=== PATIENT | female | born 1990 | race Two or more races ===

== ENCOUNTER → 2017-05-14 | Outpatient (CLI) | payer OTHER ==
--- NOTE | 2017-05-14 12:49 | XR ---
EXAMINATION TYPE: XR wrist complete RT DATE OF EXAM: 05/14/2017 CLINICAL HISTORY: Right wrist pain following repeated lifting. TECHNIQUE: Frontal, lateral and oblique images of the right wrist are obtained. COMPARISON: None FINDINGS: There is no acute fracture/dislocation evident in the right wrist. The joint spaces in th e right wrist appear within normal limits. The overlying soft tissue appears unremarkable. IMPRESSION: There is no acute fracture or dislocation in the right wrist.
== END | disposition home or self-care (01) ==
LOC: RADXRMAIN 12:27
PROVIDERS: ATTEND Emergency Medicine
DX: M25.531 Pain in right wrist (principal)

== ENCOUNTER 2017-07-25 23:58 | Emergency (ER) | payer OTHER ==
[2017-07-26 00:04] VITALS: TEMP 97.4
--- NOTE | 2017-07-26 00:30 | ED ---
General Adult HPI - General Chief complaint: Extremity Injury, Lower Stated complaint: rt ankle injury Time Seen by Provider: 07/26/17 00:11 Source: patient, RN notes reviewed Mode of arrival: wheelchair Limitations: no limitations - History of Present Illness Initial comments: Patient is a 26-year-old female presenting to the emergency room today with a chief complaint of injury to the right ankle that occurred approximately 3 hours ago. She states she stepped wrong twisted the right ankle. States since that time septic with them with ambulation. Experiencing pain to the medial aspect. Denies any other concerns or symptoms. Patient denies any recent fever , chills, shortness of breath, chest pain, back pain, abdominal pain, nausea or vomiting, numbness or tingling, headaches or visual changes, or any other complaints. - Related Data Previous Rx's Medication Instructions Recorded Acetaminophen-Codeine 300-30mg 2 each PO Q4HR PRN #30 tab 11/16/13 [Tylenol w/codeine #3] Ibuprofen [Motrin] 600 mg PO Q6HR PRN #30 tab 11/16/13 Ibuprofen [Motrin] 600 mg PO Q6HR PRN #40 day 07/26/17 Allergies Allergy/AdvReac Type Severity Reaction Status Date / Time No Known Allergies Allergy Verified 07/26/17 00:04 Review of Systems ROS Statement: Those systems with pertinent positive or pertinent negative responses have been documented in the HPI. ROS Other: All systems not noted in ROS Statement are negative. Past Medical History Past Medical History: No Reported History Additional Past Medical History / Comment(s): Obstetric history: Her first was elective . This is her second . She's had care with me since 16 weeks gestation. EDC 11/04/13 by a 17 week ultrasound. Her type is O+, antibodies negative, rubella immune, RPR nonreactive, HIV nonreactive, hepatitis B negative. Normal 1 hour glucose tolerance test. History of Any Multi-Drug Resistant Organisms: None Reported Past Surgical History: Section, Orthopedic Surgery, Tonsillectomy Additional Past Surgical History / Comment(s): Knee surgery Past Anesthesia/Blood Transfusion Reactions: No Reported Reaction Past Psychological History: No Psychological Hx Reported Smoking Status: Current some day smoker Past Alcohol Use History: Occasional Past Drug Use History: None Reported General Exam - General Exam Comments Initial Comments: General: The patient is awake and alert, in no distress, and does not appear acutely ill. Neck: The neck is supple, there is no tenderness or JVD. Cardiovascular: There is a regular rate and rhythm. No murmur, rub or gallop is appreciated. Respiratory: Lungs are clear to auscultation, respirations are non-labored, breath sounds are equal. No wheezes, stridor, rales, or rhonchi. Musculoskeletal: Normal appearance of the right ankle no obvious deformity. Sensations are intact with pulses 2+. Mildly tender over the medial aspect of the right ankle. Mild tenderness to distal midshaft tibia. No tenderness over the fibular head. No tenderness over the lateral malleolus. Mildly tender posterior to lateral malleolus. No tenderness to the right foot. Neurological: A&O x 3. CN II-XII intact, There are no obvious motor or sensory deficits. Coordination appears grossly intact. Speech is normal. Skin: Skin is warm and dry and no rashes or lesions are noted. Psychiatric: Normal mood and affect. Limitations: no limitations Course Vital Signs 07/26/17 07/26/17 00:01 01:04 Temperature 97.4 F L Pulse Rate 81 78 Respiratory 18 15 Rate Blood Pressure 125/81 134/86 O2 Sat by Pulse 99 100 Oximetry Medical Decision Making - Medical Decision Making X-rays reviewed negative for any acute abnormality. Results were discussed with patient. Patient difficulty ambulating has been placed in a posterior short leg OCL splint. Neurovascular rechecked and intact. Patient states she has crutches at home but will be given a prescription just in case. Advised ice elevate and follow-up with orthopedic doctor. Disposition Clinical Impression: Ankle injury Disposition: HOME SELF-CARE Condition: Good Instructions: Ankle Sprain (ED) Additional Instructions: Please use medication as discussed. Please follow-up with family doctor in the next 2 days of symptoms have not improved. Please return to emergency room if the symptoms increase or worsen or for any other concerns. Prescriptions: Ibuprofen [Motrin] 600 mg PO Q6HR PRN #40 day PRN Reason: Pain Referrals: Mj Contreras MD [Primary Care Provider] - 1-2 days Time of Disposition: 02:04
[2017-07-26 01:15] VITALS: BP 134/86; PULSE 78; RESP 15
--- NOTE | 2017-07-26 01:26 | XR ---
EXAMINATION TYPE: XR ankle complete RT DATE OF EXAM: 07/26/2017 COMPARISON: NONE HISTORY: Leg pain ankle pain TECHNIQUE: 3 views FINDINGS: Ankle mortise is anatomic. I see no fracture nor dislocation. Joint spaces are normal. IMPRESSION: Negative right ankle exam.
--- NOTE | 2017-07-26 01:27 | XR ---
EXAMINATION TYPE: XR tibia fibula RT DATE OF EXAM: 07/26/2017 COMPARISON: NONE HISTORY: Ankle pain TECHNIQUE: 2 views FINDINGS: I see no fracture nor dislocation. Tibia and fibula appear intact. Knee joint and ankle rivera nt appear intact. IMPRESSION: Negative right tibia and fibula exam.
== END 2017-07-26 02:23 | disposition home or self-care (01) ==
LOC: EC 23:58
DX: S99.911A Unspecified injury of right ankle, initial encounter (principal); F17.200 Nicotine dependence, unspecified, uncomplicated; X50.1XXA Overexertion from prolonged static or awkward postures, initial encounter; Y92.89 Other specified places as the place of occurrence of the external cause
CPT/HCPCS: 29515; 99283

== ENCOUNTER 2018-09-18 06:45 | Inpatient (IN) | payer BC, OTHER ==
[2018-09-18] MEDS: LACTATED RINGERS 1,000 ML IV SCH ×3 (13:27→21:42)
[2018-09-18] MEDS ORDERED: CARBOPROST TROMETHAMINE 250 MCG/ML 1 ML AMP IM PRN (13:28)
[2018-09-18] MEDS ORDERED: METHYLERGONOVINE 0.2 MG/ML 1 ML AMP IM PRN (13:28)
[2018-09-18] MEDS ORDERED: OXYTOCIN 30 UNITS/500 ML NS 30 UNIT in SALINE 1 500ML.BAG IV SCH (13:28)
[2018-09-18] MEDS ORDERED: TERBUTALINE 1 MG/ML VIAL SQ PRN (13:28)
[2018-09-18] MEDS ORDERED: OXYTOCIN 10 UNIT/ML 1 ML VIAL IM PRN (13:28)
[2018-09-18] MEDS ORDERED: LIDOCAINE 0.5% (PF) 5 MG/ML (50 ML SDV) SQ PRN (13:28)
[2018-09-18] MEDS ORDERED: AMPICILLIN 2,000 MG in SODIUM CHLORIDE 0.9% 100 ML IVPB STA (13:29)
[2018-09-18 13:47] LABS: Basophils % (A) 0 %; Eosinophils # (A) 0.1 k/uL (0-0.7); Eosinophils % (A) 1 %; HCT 33.3 % (34.0-46.0); HGB 11.2 gm/dL (11.4-16.0); Lymphocytes # (A) 1.5 k/uL (1.0-4.8); Lymphocytes % (A) 15 %; MCH 32.2 pg (25.0-35.0); MCHC 33.6 g/dL (31.0-37.0); Mean Platelet Volume 9.4; Monocytes # (A) 0.5 k/uL (0-1.0); Monocytes % (A) 5 %; Neutrophils # (A) 7.7 k/uL (1.3-7.7); Neutrophils % (A) 77 %; Platelet Count 183 k/uL (150-450); RBC 3.47 m/uL (3.80-5.40); RDW 14.8 % (11.5-15.5)
[2018-09-18 14:18] VITALS: BMI 40.4
[2018-09-18] MEDS ORDERED: BUTORPHANOL 1 MG/ML 1 ML VIAL IV PRN (15:30)
[2018-09-18] MEDS ORDERED: ROPIVACAINE 5MG/ML 20ML VIAL ONE (16:29)
[2018-09-18] MEDS ORDERED: fentaNYL (PF) 50 MCG/ML 5 ML AMP ONE (16:29)
[2018-09-18] MEDS ORDERED: SODIUM CHLORIDE 0.9% 100 ML BAG ONE (16:29)
[2018-09-18] MEDS: AMPICILLIN 1,000 MG in SODIUM CHLORIDE 0.9% 50 ML IVPB SCH ×2 (18:04→21:45)
[2018-09-18] MEDS ORDERED: CHLOROPROCAINE 3% 30 MG/ML 20 ML VIAL ONE (21:59)
[2018-09-18] MEDS ORDERED: OXYTOCIN 10 UNIT/ML 1 ML VIAL ONE (21:59)
[2018-09-18] MEDS ORDERED: PHENYLEPHRINE-0.9% NACL SYG 1 MG/10 ML SYRINGE ONE (21:59)
[2018-09-18] MEDS ORDERED: CITRIC ACID-SODIUM CITRATE 15 ML CUP PO ONE (22:00)
--- NOTE | 2018-09-18 23:14 | P.OP ---
Date of Procedure: 09/18/18 Preoperative Diagnosis: 1. at 39 weeks 6 days 2. previous 3. category 3 tracing Postoperative Diagnosis: 1. at 39 weeks 6 days 2. previous 3. category 3 tracing 4. clinical abruption of placenta Procedure(s) Performed: Repeat low transverse Anesthesia: epidural Surgeon: Zully Gomez Spanish Professor #1: Taylor Farr Estimated Blood Loss (ml): 800 IV fluids (ml): 1,000 Urine output (ml): 100 Pathology: other (Placenta) Condition: stable Disposition: floor Indications for Procedure: 28-year-[facility] labor around 1 PM. Her cervix was 2 cm dilated, 80% effaced, and -3 station. She was uncomfortable with contractions and ingrid every 2-4 minutes. heart tones 130s with moderate variability and reactive, category 1 tracing. Pitocin augmentation was started and amniotomy performed at 1330, clear fluid noted. She progressed throughout the day when she was uncomfortable at 4 cm she did get an epidural. Her cervix was completely dilated just after 2130. She began pushing started to have some decelerations after contraction to the 80s with slow return to baseline. This is a category 2 tracing turned into category 3 tracing. Considering the baby was still at 0 station and quite remote from delivery, section was called and informed consent was obtained. Operative Findings: Viable female, Apgars 4, 8, 9. Weight 6 lbs. 7 oz. Normal ovaries and fallopian tubes, the placenta had a clot behind it. Description of Procedure: Patient was taken to the operating room where spinal anesthesia was found be adequate. She was prepped and draped in normal sterile fashion in dorsal supine position with a leftward tilt. Pfannenstiel skin incision was made the scalpel and carried through to the underlying layer of fascia with the scalpel. Fascia was incised in midline and carried bilaterally with the Lazo scissors. The superior aspect of the fascial incision was grasped with Charles clamps elevated and the underlying rectus muscles dissected off with the Lazo's. Attention was then turned to inferior aspect of same incision which in a similar fashion was grasped tented up and the underlying rectus muscles dissected off with the Lazo's. The rectus muscles were the midline and the peritoneum was identified tented up and entered sharply with the scalpel. The incision was extended superiorly and inferiorly with good visualization of the bladder. The bladder blade was inserted and the vesicouterine peritoneum was incised the Metzenbaums then carried bilaterally and bladder flap created digitally. A low transverse incision was then made on the uterus with the scalpel. This was carried bilaterally and digital manner. Infant's head delivered atraumatically, nose and mouth bulb suctioned, cord clamped and cut, infant handed off to waiting nurses. Apgars 9,10, weight 6 lbs. 7 oz. Placenta delivered manually, intact with three-vessel cord, of note a clot followed the placenta. The uterus was cleared of all clots and debris. The uterine incision was seen to have some extensions down the front and the right corner. The uterine incision was closed with 0 Vicryl in a running locked fashion. Second layer of the same sutures used in imbricating fashion to obtain excellent hemostasis. The fascia was billy pproximated using 0 Vicryl in a running fashion. The subcutaneous tissues closed with 3-0 Vicryl running fashion. The skin was closed renuka. Patient tolerated the procedure well, sponge and instrument counts were correct times 2 and she was taken to the recovery room in stable condition.
[2018-09-18] MEDS ORDERED: LANOLIN CREAM 5 GM TUBE TOPICAL PRN (23:15)
[2018-09-18] MEDS ORDERED: diphenhydrAMINE 50 MG CAP PO PRN (23:15)
[2018-09-18] MEDS ORDERED: diphenhydrAMINE 25 MG CAP PO PRN (23:15)
[2018-09-18] MEDS ORDERED: NALOXONE 0.4 MG/ML 1 ML VIAL IV PRN (23:15)
[2018-09-18] MEDS ORDERED: ONDANSETRON 4 MG/2 ML VIAL IVP PRN (23:15)
[2018-09-18] MEDS ORDERED: METOCLOPRAMIDE 5 MG/ML 2 ML VIAL IVP PRN (23:15)
[2018-09-18] MEDS ORDERED: ACETAMINOPHEN TAB 325 MG TAB PO PRN (23:15)
[2018-09-18] MEDS ORDERED: SIMETHICONE 80 MG CHEWABLE PO PRN (23:15)
[2018-09-18] MEDS ORDERED: diphenhydrAMINE 50 MG/ML 1 ML VIAL IVP PRN ×2 (23:15)
[2018-09-18] MEDS ORDERED: ZOLPIDEM 5 MG TAB PO PRN (23:15)
[2018-09-18] MEDS ORDERED: OXYTOCIN 20 UNITS/1000 ML NS 1,000 ML IV SCH (23:15)
--- NOTE | 2018-09-18 23:22 | P.HPOB ---
History of Present Illness H&P Date: 09/18/18 Chief Complaint: Labor 28 year old presents at 39 weeks 6 days for induction of labor. When she presented to L&D she was already found to be ingrid and breathing through them. heart tones 130's with moderate variability and reactive. Her cervix was 2/80/-3. Review of Systems All systems: negative Constitutional: Denies chills, Denies fever Eyes: denies blurred vision, denies pain Ears, nose, mouth and throat: Denies headache, Denies sore throat Cardiovascular: Denies chest pain, Denies shortness of breath Respiratory: Denies cough Gastrointestinal: Denies abdominal pain, Denies diarrhea, Denies nausea, Denies vomiting Genitourinary: Denies dysuria, Denies hematuria Musculoskeletal: Denies myalgias Integumentary: Denies pruritus, Denies rash Neurological: Denies numbness, Denies weakness Psychiatric: Denies anxiety, Denies depression Endocrine: Denies fatigue, Denies weight change Past Medical History Past Medical History: No Reported History Additional Past Medical History / Comment(s): Obstetric history: Her first was elective . second was a primary for failure to progress and heart tones. This is her third . She's had care with me since the first trimeseter. Her type is O+, antibodies negative, rubella immune, RPR nonreactive, HIV nonreactive, hepatitis B negative. Normal 1 hour glucose tolerance test. History of Any Multi-Drug Resistant Organisms: None Reported Past Surgical History: Section, Orthopedic Surgery, Tonsillectomy Additional Past Surgical History / Comment(s): Knee surgery Past Anesthesia/Blood Transfusion Reactions: No Reported Reaction Past Psychological History: No Psychological Hx Reported Smoking Status: Never smoker Past Alcohol Use History: Occasional Past Drug Use History: None Reported - Past Family History Mother Family Medical History: Cancer Medications and Allergies Home Medications Medication Instructions Recorded Confirmed Type Pnv No.95/Ferrous Fum/Folic AC 1 tab PO ONCE 09/18/18 09/18/18 History [ Multivitamin Tablet] Allergies Allergy/AdvReac Type Severity Reaction Status Date / Time No Known Allergies Allergy Verified 09/18/18 13:28 Exam Osteopathic Statement: *. No significant issues noted on an osteopathic str uctural exam other than those noted in the History and Physical/Consult. Vital Signs Temp Pulse Resp BP Pulse Ox 09/18/18 22:59 97.2 F L 81 18 95/50 99 09/18/18 13:27 97.7 F 82 16 138/82 99 Intake and Output 09/18/18 09/18/18 09/19/18 14:59 22:59 06:59 Intake Total 2049 Balance 2049 Intake: Intake, IV Titration 2049 Amount Ampicillin 1,000 mg In 50 Sodium Chloride 0.9% 50 ml @ 100 mls/hr IVPB Q4H NEYMAR Rx#:[id number] Lactated Ringers 1,000 ml 2000 @ 125 mls/hr IV .Q8H NEYMAR Rx#:[id number] Other: Voiding Method Indwelling Catheter # Voids 1 150 Weight 100.244 kg Heart: Regular rate and rhythm Lungs: Clear to auscultation bilaterally Abdomen: Soft, nontender Extremities: Negative Homans sign Results Result Diagrams: 09/18/18 13:27 Abnormal Lab Results - Last 24 Hours (Table) 09/18/18 Range/Units 13:27 RBC 3.47 L (3.80-5.40) m/uL Hgb 11.2 L (11.4-16.0) gm/dL Hct 33.3 L (34.0-46.0) % Assessment and Plan (1) Normal labor Current Visit: No Status: Acute Code(s): O80 - ENCOUNTER FOR FULL-TERM UNCOMPLICATED DELIVERY SNOMED Code(s): 07932583 (2) Previous section Current Visit: Yes Status: Acute Code(s): Z98.891 - HISTORY OF UTERINE SCAR FROM PREVIOUS SURGERY SNOMED Code(s): 974271652 Plan: 1. Augment labor 2. Anticipate normal vaginal delivery, however we did speak about vaginal after section in great detail in the office anterior including all risks, benefits, alternative of section. Patient has mixed was complete understanding.
[2018-09-19] MEDS: KETOROLAC 30 MG/ML 1 ML VIAL IVP PRN ×4 (01:22→23:08)
[2018-09-19] MEDS: ceFAZolin IN SWFI 2 GM/20 ML SYRINGE IVP SCH ×2 (05:37→14:03)
[2018-09-19] MEDS: LACTATED RINGERS 1,000 ML IV SCH ×4 (05:39→20:33)
[2018-09-19 06:49] LABS: Basophils % (A) 0 %; Eosinophils # (A) 0.1 k/uL (0-0.7); Eosinophils % (A) 0 %; Lymphocytes # (A) 1.4 k/uL (1.0-4.8); Lymphocytes % (A) 12 %; MCH 32.4 pg (25.0-35.0); MCHC 33.1 g/dL (31.0-37.0); MCV 97.8 fL (80.0-100.0); Macrocytosis Slight; Mean Platelet Volume 10.6; Monocytes # (A) 0.5 k/uL (0-1.0); Monocytes % (A) 4 %; Neutrophils # (A) 9.9 k/uL (1.3-7.7); Neutrophils % (A) 83 %; Platelet Count 152 k/uL (150-450); RBC 2.76 m/uL (3.80-5.40); RDW 15.4 % (11.5-15.5)
--- NOTE | 2018-09-19 07:16 | P.PN ---
Progress Note - Text 09/19 636am 28-year-old female status with an epidural catheter. Postoperatively Duramorph was given 1 at the epidural, patient has a VAS of 1 with no complaints of nausea vomiting. Doing well
--- NOTE | 2018-09-19 08:24 | P.PNOBGPC ---
Subjective - Subjective Principal diagnosis: Status post repeat low transverse postoperative day #1 Interval history: Patient seen and examined. Denies nausea, vomiting, chest pain, shortness of breath or calf pain. Patient reports: Reports appetite normal, Reports pain well controlled, Reports ambulating normally : doing well Objective - Vital Signs Latest vital signs: Vital Signs Temp Pulse Resp BP Pulse Ox 09/19/18 04:00 98.1 F 85 16 106/61 99 09/19/18 00:59 98.8 F 94 18 125/63 98 09/19/18 00:29 99.3 F 87 18 135/82 09/18/18 23:59 99.1 F 88 18 153/85 100 09/18/18 23:44 88 18 140/77 100 09/18/18 23:29 88 18 142/70 99 09/18/18 23:14 103 H 18 133/71 99 09/18/18 22:59 97.2 F L 81 18 95/50 99 09/18/18 13:27 97.7 F 82 16 138/82 99 Intake and Output 09/18/18 09/19/18 09/19/18 22:59 06:59 14:59 Intake Total 2049 1600 Output Total 200 300 Balance 2049 1400 -300 Intake: Intake, IV Titration 2049 1000 Amount Ampicillin 1,000 mg In 50 Sodium Chloride 0.9% 50 ml @ 100 mls/hr IVPB Q4H NEYMAR Rx#:[id number] Lactated Ringers 1,000 ml 2000 @ 125 mls/hr IV .Q8H NEYMAR Rx#:[id number] Oxytocin 20 Units/1000 ml 1000 Ns 1,000 ml @ Per Protocol IV .Q0M NEYMAR Rx#: [id number] Oral 600 Output: Urine 200 300 Other: Voiding Method Indwelling Catheter # Voids 150 - Exam Lungs: bilateral: normal Chest: Normal S1, Normal S2 Extremities: Present: normal Abdomen: Present: normal appearance, soft. Absent: distention, tenderness Incision: Present: normal, dry, intact Uterus: Present: normal, firm - Labs Labs: Abnormal Lab Results - Last 24 Hours (Table) 09/18/18 09/19/18 Range/Units 13:27 06:32 WBC 12.0 H (3.8-10.6) k/uL RBC 3.47 L 2.76 L (3.80-5.40) m/uL Hgb 11.2 L 9.0 L D (11.4-16.0) gm/dL Hct 33.3 L 27.0 L (34.0-46.0) % Neutrophils # 9.9 H (1.3-7.7) k/uL Assessment and Plan (1) Normal labor Current Visit: No Status: Resolved Code(s): O80 - ENCOUNTER FOR FULL-TERM UNCOMPLICATED DELIVERY SNOMED Code(s): 57409576 (2) Previous section Current Visit: Yes Status: Resolved Code(s): Z98.891 - HISTORY OF UTERINE SCAR FROM PREVIOUS SURGERY SNOMED Code(s): 814511947 (3) Status post repeat low transverse section Current Visit: Yes Status: Acute Code(s): Z98.891 - HISTORY OF UTERINE SCAR FROM PREVIOUS SURGERY SNOMED Code(s): 609429994 Plan: 1. Increase ambulation 2. Pain control 3. Advanced diet
[2018-09-19] MEDS: SENNOSIDES-DOCUSATE SODIUM 1 EACH TAB PO SCH ×3 (08:50→19:37)
[2018-09-19] MEDS: HYDROcodone/APAP 7.5-325MG 1 EACH TAB PO PRN (18:03)
[2018-09-20] MEDS: LACTATED RINGERS 1,000 ML IV SCH (00:36)
[2018-09-20] MEDS: IBUPROFEN 600 MG TAB PO PRN ×2 (05:04→11:34)
[2018-09-20] MEDS: HYDROcodone/APAP 7.5-325MG 1 EACH TAB PO PRN ×2 (06:28→16:27)
[2018-09-20] MEDS: SENNOSIDES-DOCUSATE SODIUM 1 EACH TAB PO SCH ×2 (09:26→09:36)
--- NOTE | 2018-09-20 10:37 | P.DS ---
Providers Date of admission: 09/18/18 12:55 Expected date of discharge: 09/20/18 Attending physician: Zully Gomez Primary care physician: Stated None Hospital Course: Patient is doing very well post op day 2. She is involuting, voiding and she is tolerating her diet. She voices no complaints. Vital signs are stable and afebrile. Heart regular, lungs clear, extremities without pain. Abdomen soft uterus is firm and incision is clean dry and intact. Assessment postop day 2. Plan we'll discharged home and follow-up with our office on Saturday for staple removal. Prescription for [place] and Motrin provided and all questions are answered for her prior to discharge. She is stable for discharge at this time. Discharge instructions were thoroughly reviewed. Patient Condition at Discharge: Good Plan - Discharge Summary New Discharge Prescriptions: New Ibuprofen [Motrin] 600 mg PO Q6HR PRN #30 tab PRN Reason: Pain HYDROcodone/APAP 7.5-325MG [[place] 7.5-325] 1 tab PO Q4H PRN 3 Days #18 tab PRN Reason: Pain No Action Pnv No.95/Ferrous Fum/Folic AC [ Multivitamin Tablet] 1 tab PO ONCE Discharge Medication List Pnv No.95/Ferrous Fum/Folic AC [ Multivitamin Tablet] 1 tab PO ONCE 09/18/18 [History] HYDROcodone/APAP 7.5-325MG [[place] 7.5-325] 1 tab PO Q4H PRN 3 Days #18 tab 09/20/18 [Rx] Ibuprofen [Motrin] 600 mg PO Q6HR PRN #30 tab 09/20/18 [Rx] Follow up Appointment(s)/Referral(s): Zully Gomez DO [Doctor of Osteopathic Medicine] - 3 Days Activity/Diet/Wound Care/Special Instructions: No heavy lifting, limit stairs and driving, and pelvic rest. If any high temperatures, heavy bleeding, or severe pain call our office. Discharge Disposition: HOME SELF-CARE
[2018-09-20 11:37] VITALS: TEMP 97.9
[2018-09-20 18:03] VITALS: BP 116/72; PULSE 88; RESP 16
== END 2018-09-20 18:23 | disposition home or self-care (01) | DRG 786 ==
LOC: 4FBP 12:55
PROVIDERS: ADMIT Obstetrics & Gynecology; ATTEND Obstetrics & Gynecology
PROC: 00HU33Z Insertion of Infusion Device into Spinal Canal, Percutaneous Approach (ICD-10-PCS; principal; 2018-09-18 06:45)
PROC: 10D00Z1 Extraction of Products of Conception, Low, Open Approach (ICD-10-PCS; principal; 2018-09-18 06:45)
PROC: 3E0R3BZ Introduction of Anesthetic Agent into Spinal Canal, Percutaneous Approach (ICD-10-PCS; principal; 2018-09-18 06:45)
DX: O34.211 Maternal care for low transverse scar from previous cesarean delivery (principal); O45.93 Premature separation of placenta, unspecified, third trimester; N85.8 Other specified noninflammatory disorders of uterus; Z3A.39 39 weeks gestation of pregnancy; Z37.0 Single live birth; Z79.899 Other long term (current) drug therapy
CPT/HCPCS: 85025; 86850; 86900; 86901; 88307

== ENCOUNTER → 2020-03-01 | Outpatient (CLI) | payer BC ==
--- NOTE | 2020-03-01 12:07 | ECHOS ---
STRESS ECHOCARDIOGRAM INDICATIONS: Evaluate for CAD with an abnormal EKG. MAXIMUM HEART RATE: 167 TOTAL EXERCISE TIME: 10:15 CLINICAL INFORMATION: Baseline EKG revealed a normal sinus rhythm with a precordial and inferior nonspecific ST changes. This could also be considered as a juvenile T-wave changes. Patient walked on a standard [place] protocol for a total duration of 10 minutes 15 seconds achieved a maximal heart rate of 167 beats per minute, developed fatigue and shortness of breath but did not have angina. EKG actually revealed improvement in the T-wave changes as she exercised, but this is still considered an inconclusive stress test with good exercise capacity. Baseline echo images revealed normal wall motion and wall thickening of all segments. At peak exercise, the patient's echo revealed good augmentation of left ventricular wall motion and wall thickening of all segments suggesting that there is no evidence of stress-induced ischemia on this study. By the time echo images were obtained, heart rate was about 142. This is however normal stress echocardiogram. IMPRESSION: 1. 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 2. Normal stress echocardiogram without evidence of ischemia. MMODL / IJN: [id number] /
== END | disposition home or self-care (01) ==
LOC: RADNMMAIN 10:42
PROVIDERS: ATTEND Family Medicine
DX: R94.31 Abnormal electrocardiogram [ECG] [EKG] (principal)
CPT/HCPCS: 93351

== ENCOUNTER 2020-08-03 17:26 | Emergency (ER) | payer BC ==
[2020-08-03 18:55] VITALS: RESP 18
[2020-08-03 19:20] LABS: ALT 21 U/L (4-34); AST 29 U/L (14-36); African American GFR (CKD) >90 (>60 ml/min/1.73 sqM); Albumin 4.1 g/dL (3.5-5.0); Alkaline Phosphatase 65 U/L (38-126); Anion Gap 8 mmol/L; Blood Urea Nitrogen 8 mg/dL (7-17); Carbon Dioxide 26 mmol/L (22-30); Chloride 102 mmol/L (98-107); Glucose 96 mg/dL (74-99); Non-African American GFR(CKD) >90 (>60 ml/min/1.73 sqM); Potassium 4.8 mmol/L (3.5-5.1); Sodium 136 mmol/L (137-145); Total Bilirubin 0.5 mg/dL (0.2-1.3); Total Protein 6.8 g/dL (6.3-8.2)
[2020-08-03 19:25] LABS: Basophils % (A) 1 %; Eosinophils # (A) 0.2 k/uL (0-0.7); Eosinophils % (A) 3 %; HCT 38.8 % (34.0-46.0); HGB 13.7 gm/dL (11.4-16.0); Lymphocytes # (A) 2.6 k/uL (1.0-4.8); Lymphocytes % (A) 32 %; MCH 35.5 pg (25.0-35.0); MCHC 35.2 g/dL (31.0-37.0); Mean Platelet Volume 8.5; Monocytes # (A) 0.4 k/uL (0-1.0); Monocytes % (A) 5 %; Neutrophils # (A) 4.9 k/uL (1.3-7.7); Neutrophils % (A) 59 %; Platelet Count 244 k/uL (150-450); RBC 3.84 m/uL (3.80-5.40); RDW 12.5 % (11.5-15.5); WBC 8.2 k/uL (3.8-10.6)
[2020-08-03 20:05] LABS: HCG,Quantitative Serum 33924.1 mIU/mL
[2020-08-03 20:53] LABS: Appearance,Urine Clear (Clear); Bacteria,Urine Rare /hpf; Bilirubin,Urine Negative (Negative); Blood,Urine Large (Negative); Color,Urine Yellow; Glucose,Urine (UA) Negative (Negative); Ketones,Urine Negative (Negative); Leukocyte Esterase,Urine Negative (Negative); Mucus,Urine Rare /hpf; Nitrite,Urine Negative (Negative); Protein,Urine Negative (Negative); RBC,Urine 92 /hpf (0-5); Specific Gravity,Urine 1.006 (1.001-1.035); Squamous Epithelial Cell,Urine 1 /hpf (0-4); Urobilinogen,Urine <2.0 mg/dL (<2.0); WBC,Urine 2 /hpf (0-5)
--- NOTE | 2020-08-03 21:51 | ED ---
General Adult HPI - General Chief complaint: Vaginal Bleeding Stated complaint: Poss miscarriage/9wks Time Seen by Provider: 08/03/20 20:28 Source: patient Mode of arrival: ambulatory Limitations: no limitations - History of Present Illness Initial comments: 29-year-old female patient who is approximately 9 weeks , G4, P2, A1 with history of elective , presents to the emergency department today for evaluation of vaginal bleeding. Patient states that earlier today after work she had a gush of bright red blood that went through her pants. States that she has had mild bleeding since. Reports abdominal pressure, but no pain at this time. States last period was sometime in April, periods are generally irregular. Had positive home test one week ago. Took test because she was feeling dizzy. Does have an appointment with Dr. Gomez coming up. Patient denies any recent rash, fever, chills, cough, shortness of breath, chest pain, nausea, vomiting, diarrhea, constipation, back pain, numbness, tingling, hematuria, dysuria, urinary urgency, urinary frequency, headache, visual changes, or any other complaints. - Related Data Home Medications Medication Instructions Recorded Confirmed Pnv No.95/Ferrous Fum/Folic AC 1 tab PO ONCE 09/18/18 09/18/18 [ Multivitamin Tablet] Previous Rx's Medication Instructions Recorded HYDROcodone/APAP 7.5-325MG [[place] 1 tab PO Q4H PRN 3 Days #18 tab 09/20/18 7.5-325] Ibuprofen [Motrin] 600 mg PO Q6HR PRN #30 tab 09/20/18 Allergies Allergy/AdvReac Type Severity Reaction Status Date / Time No Known Allergies Allergy Verified 08/03/20 18:55 Review of Systems ROS Statement: Those systems with pertinent positive or pertinent negative responses have been documented in the HPI. ROS Other: All systems not noted in ROS Statement are negative. Past Medical History Past Medical History: No Reported History Additional Past Medical History / Comment(s): Obstetric history: Her first was elective . second was a primary for failure to progress and heart tones. This is her third . She's had care with me since the first trimeseter. Her type is O+, antibodies negative, rubella immune, RPR nonreactive, HIV nonreactive, hepatitis B negative. Normal 1 hour glucose tolerance test. History of Any Multi-Drug Resistant Organisms: None Reported Past Surgical History: Section, Orthopedic Surgery, Tonsillectomy Additional Past Surgical History / Comment(s): Knee surgery Past Anesthesia/Blood Transfusion Reactions: No Reported Reaction Past Psychological History: No Psychological Hx Reported Smoking Status: Never smoker Past Alcohol Use History: Occasional Past Drug Use History: None Reported - Past Family History Mother Family Medical History: Cancer General Exam Limitations: no limitations General appearance: alert, in no apparent distress, other (This is a well developed, well nourished adult female patient in no acute distress. Vital signs upon presentation are temperature 98.4F, pulse 66, respirations 18, blood pressure 135/91, pulse ox 100% on room air.) Eye exam: Present: normal appearance, PERRL, EOMI. Absent: scleral icterus, conjunctival injection, periorbital swelling ENT exam: Present: normal exam, normal oropharynx, mucous membranes moist Respiratory exam: Present: normal lung sounds bilaterally. Absent: respiratory distress, wheezes, rales, rhonchi, stridor Cardiovascular Exam: Present: regular rate, normal rhythm, normal heart sounds. Absent: systolic murmur, diastolic murmur, rubs, gallop, clicks GI/Abdominal exam: Present: soft, tenderness (Suprapubic), normal bowel sounds. Absent: distended, guarding, rebound, rigid Neurological exam: Present: alert, oriented X3, CN II-XII intact Psychiatric exam: Present: normal affect, normal mood Skin exam: Present: warm, dry, intact, normal color. Absent: rash Course Vital Signs 08/03/20 08/03/20 08/03/20 18:50 20:37 23:01 Temperature 98.4 F 98.2 F Pulse Rate 66 65 67 Respiratory 18 18 18 Rate Blood Pressure 135/91 141/89 137/82 O2 Sat by Pulse 100 100 100 Oximetry Medical Decision Making - Medical Decision Making 29-year-old female patient who is 9 weeks , G4, P2 presents to the emergency department today for evaluation of vaginal bleeding. Physical examination revealed soft nontender abdomen. Report some mild bright red bleeding at this time. Labs reviewed and did reveal hCG level at 33,000. She had ultrasound which showed viable intrauterine measuring 9 weeks 6 days with a heart rate of 167. There was a small subchorionic hemorrhage. I did discuss findings results with her. We did discuss subchorionic bleed versus threatened as a cause for her symptoms. She'll be given a lab slip to have repeat hCG drawn in 2 days. She is instructed to follow-up with her [employer]READ C[employer] Dr. Gomez as soon as possible. Return parameters were discussed in detail. She verbalizes understanding and agrees with this plan. Case discussed with my attending Dr. Arnold. - Lab Data Result diagrams: 08/03/20 19:07 08/03/20 19:07 Lab Results 08/03/20 08/03/20 08/03/20 Range/Units 19:07 19: 19:07 WBC 8.2 (3.8-10.6) k/uL RBC 3.84 (3.80-5.40) m/uL Hgb 13.7 (11.4-16.0) gm/dL Hct 38.8 (34.0-46.0) % MCV 101.0 H (80.0-100.0) fL MCH 35.5 H (25.0-35.0) pg MCHC 35.2 (31.0-37.0) g/dL RDW 12.5 (11.5-15.5) % Plt Count 244 (150-450) k/uL MPV 8.5 Neutrophils % 59 % Lymphocytes % 32 % Monocytes % 5 % Eosinophils % 3 % Basophils % 1 % Neutrophils # 4.9 (1.3-7.7) k/uL Lymphocytes # 2.6 (1.0-4.8) k/uL Monocytes # 0.4 (0-1.0) k/uL Eosinophils # 0.2 (0-0.7) k/uL Basophils # 0.0 (0-0.2) k/uL Sodium 136 L (137-145) mmol/L Potassium 4.8 (3.5-5.1) mmol/L Chloride 102 (98-107) mmol/L Carbon Dioxide 26 (22-30) mmol/L Anion Gap 8 mmol/L BUN 8 (7-17) mg/dL Creatinine 0.49 L (0.52-1.04) mg/dL Est GFR (CKD-EPI)AfAm >90 (>60 ml/min/1.73 sqM) Est GFR (CKD-EPI)NonAf >90 (>60 ml/min/1.73 sqM) Glucose 96 (74-99) mg/dL Calcium 10.0 (8.4-10.2) mg/dL Total Bilirubin 0.5 (0.2-1.3) mg/dL AST 29 (14-36) U/L ALT 21 (4-34) U/L Alkaline Phosphatase 65 (38-126) U/L Total Protein 6.8 (6.3-8.2) g/dL Albumin 4.1 (3.5-5.0) g/dL HCG, Quant 71237.1 mIU/mL Urine Color Urine Appearance (Clear) Urine pH (5.0-8.0) Ur Specific [place] (1.001-1.035) Urine Protein (Negative) Urine Glucose (UA) (Negative) Urine Ketones (Negative) Urine Blood (Negative) Urine Nitrite (Negative) Urine Bilirubin (Negative) Urine Urobilinogen (<2.0) mg/dL Ur Leukocyte Esterase (Negative) Urine RBC (0-5) /hpf Urine WBC (0-5) /hpf Ur Squamous Epith Cells (0-4) /hpf Urine Bacteria (None) /hpf Urine Mucus (None) /hpf Blood Type O Positive Blood Type Recheck O Pos Bld Type Recheck Status No 08/03/20 Range/Units 20:40 WBC (3.8-10.6) k/uL RBC (3.80-5.40) m/uL Hgb (11.4-16.0) gm/dL Hct (34.0-46.0) % MCV (80.0-100.0) fL MCH (25.0-35.0) pg MCHC (31.0-37.0) g/dL RDW (11.5-15.5) % Plt Count (150-450) k/uL MPV Neutrophils % % Lymphocytes % % Monocytes % % Eosinophils % % Basophils % % Neutrophils # (1.3-7.7) k/uL Lymphocytes # (1.0-4.8) k/uL Monocytes # (0-1.0) k/uL Eosinophils # (0-0.7) k/uL Basophils # (0-0.2) k/uL Sodium (137-145) mmol/L Potassium (3.5-5.1) mmol/L Chloride (98-107) mmol/L Carbon Dioxide (22-30) mmol/L Anion Gap mmol/L BUN (7-17) mg/dL Creatinine (0.52-1.04) mg/dL Est GFR (CKD-EPI)AfAm (>60 ml/min/1.73 sqM) Est GFR (CKD-EPI)NonAf (>60 ml/min/1.73 sqM) Glucose (74-99) mg/dL Calcium (8.4-10.2) mg/dL Total Bilirubin (0.2-1.3) mg/dL AST (14-36) U/L ALT (4-34) U/L Alkaline Phosphatase (38-126) U/L Total Protein (6.3-8.2) g/dL Albumin (3.5-5.0) g/dL HCG, Quant mIU/mL Urine Color Yellow Urine Appearance Clear (Clear) Urine pH 6.0 (5.0-8.0) Ur Specific [place] 1.006 (1.001-1.035) Urine Protein Negative (Negative) Urine Glucose (UA) Negative (Negative) Urine Ketones Negative (Negative) Urine Blood Large H (Negative) Urine Nitrite Negative (Negative) Urine Bilirubin Negative (Negative) Urine Urobilinogen <2.0 (<2.0) mg/dL Ur Leukocyte Esterase Negative (Negative) Urine RBC 92 H (0-5) /hpf Urine WBC 2 (0-5) /hpf Ur Squamous Epith Cells 1 (0-4) /hpf Urine Bacteria Rare H (None) /hpf Urine Mucus Rare H (None) /hpf Blood Type Blood Type Recheck Bld Type Recheck Status - Radiology Data Radiology results: report reviewed, image reviewed ultrasound obtained. Report was reviewed in its entirety. Impression by Dr. Shoemaker shows single live intrauterine with gestational age of 9 weeks 6 days and estimated due date 03/02/2021. Small subchorionic hemorrhage. 1.8 cm complex right ovarian cyst, nonspecific. Attention on follow up. Disposition Clinical Impression: Subchorionic hemorrhage, Threatened miscarriage Disposition: HOME SELF-CARE Condition: Good Instructions (If sedation given, give patient instructions): Threatened Miscarriage (ED), Subchorionic Hemorrhage (ED) Additional Instructions: Increase fluids. Maintain pelvic rest until cleared by your [employer] TENDER. Follow up with her [employer]ER for recheck as soon as possible. Have repeat hCG level drawn in 2 days. Return to the emergency department for any new, worsening, or concerning symptoms. Is patient prescribed a controlled substance at d/c from ED?: No Referrals: Brenton Plummer MD [Primary Care Provider] - 1-2 days Zully Gomez DO [Doctor of Osteopathic Medicine] - 1-2 days Time of Disposition: 22:23
--- NOTE | 2020-08-03 22:14 | US ---
EXAMINATION TYPE: Transabdominal DATE OF EXAM: 08/03/2020 8:25 PM COMPARISON: NONE CLINICAL HISTORY: bleeding. Bleeding. Hx2 C-Sections, 1 . . EXAM PERFORMED: Transabdominal (TA) EXAM MEASUREMENTS: GESTATIONAL AGE / DATING Physician Established:(8 weeks/6 days) EDC: 03/09/2021 Dates by LMP: Unknown Dates by First Scan: This is first scan. Dates by Current Scan for: 9 weeks/6 days) EDC: 03/02/2021 MATERNAL ANATOMY Uterus: Anteverted. 12.8 x 8.8 x 7.1 cm. Right Ovary: 3.8 x 2.3 x 2.5 cm. Measures upper limits of normal versus slightly enlarged. Area of mi xed echogenicity seen measuring 1.8 x 1.7 x 1.8 cm. Left Ovary: Not seen. Post CDS / Adnexa: Appear wnl. Presence of free fluid: Not seen. Presence of corpus luteal cyst: Area of mixed echogenicity seen within right ovary measuring: Presence of subchorionic bleed: Complex/heterogeneous area seen inferior to the gestational sac measu ring 2.7 x 1.8 cm. GESTATION / SURVEY CRL: 2.95 cm. (9 weeks/6 days) Yolk Sac (normal less than 6mm): Not seen. Heart Rate: 167 bpm Rhythm: Normal IUP: Viable IUP Date of LMP: Unknown. Beta HcG (if available): 33,924.1 IMPRESSION: Single live intrauterine with gestational age of 9 weeks 6 days and estimated due date of 1 05/02/2020. Small subchorionic hemorrhage. 1.8 cm complex right ovarian cyst, nonspecific. Attention on follow-up.
[2020-08-03 23:02] VITALS: BP 137/82; PULSE 67; TEMP 98.2
== END 2020-08-03 23:02 | disposition home or self-care (01) ==
LOC: EC 17:26
DX: O20.0 Threatened abortion (principal); Z3A.09 9 weeks gestation of pregnancy
CPT/HCPCS: 36415; 76801; 80053; 81001; 84702; 85025; 86900; 86901; 99284

== ENCOUNTER 2021-02-06 15:57 | Outpatient (CLI) | payer BC ==
[2021-02-06 16:39] LABS: Appearance,Urine Clear (Clear); Basophils % (A) 0 %; Bilirubin,Urine Negative (Negative); Blood,Urine Negative (Negative); Color,Urine Yellow; Eosinophils # (A) 0.1 k/uL (0-0.7); Eosinophils % (A) 1 %; Glucose,Urine (UA) Negative (Negative); HCT 35.9 % (34.0-46.0); HGB 12.5 gm/dL (11.4-16.0); Ketones,Urine Negative (Negative); Leukocyte Esterase,Urine Negative (Negative); Lymphocytes # (A) 1.8 k/uL (1.0-4.8); Lymphocytes % (A) 22 %; MCH 34.2 pg (25.0-35.0); MCHC 34.8 g/dL (31.0-37.0); MCV 98.4 fL (80.0-100.0); Mean Platelet Volume 10.6; Monocytes # (A) 0.4 k/uL (0-1.0); Monocytes % (A) 5 %; Neutrophils # (A) 5.7 k/uL (1.3-7.7); Neutrophils % (A) 69 %; Nitrite,Urine Negative (Negative); Platelet Count 187 k/uL (150-450); Protein,Urine Negative (Negative); RBC 3.65 m/uL (3.80-5.40); RDW 14.5 % (11.5-15.5); Specific Gravity,Urine 1.012 (1.001-1.035); Urobilinogen,Urine <2.0 mg/dL (<2.0); WBC 8.2 k/uL (3.8-10.6)
[2021-02-06 16:58] LABS: ALT 12 U/L (4-34); AST 23 U/L (14-36); African American GFR (CKD) >90 (>60 ml/min/1.73 sqM); Blood Urea Nitrogen 6 mg/dL (7-17); LDH 435 U/L (313-618); Non-African American GFR(CKD) >90 (>60 ml/min/1.73 sqM)
[2021-02-06 17:00] LABS: INR 0.9 (<1.2); Prothrombin Time 9.5 sec (9.0-12.0)
[2021-02-06 17:05] LABS: Creatinine,Urine Random 73.5 mg/dL; Protein/Creatinine Ratio,Urine 0.068
[2021-02-06 17:22] VITALS: BP 159/77; PULSE 83; RESP 18; TEMP 97.6
== END 2021-02-06 17:30 | disposition home or self-care (01) ==
LOC: FBPOP 15:57
PROVIDERS: ATTEND Obstetrics & Gynecology
DX: O13.3 Gestational [pregnancy-induced] hypertension without significant proteinuria, third trimester (principal); Z3A.36 36 weeks gestation of pregnancy
CPT/HCPCS: 59025; 81003; 82565; 82570; 83615; 84156; 84450; 84460; 84520; 84550; 85025; 85384; 85610; 85730

== ENCOUNTER 2021-02-10 09:56 | Inpatient (IN) | payer BC ==
[2021-02-09 10:49] VITALS: BMI 43.3
--- NOTE | 2021-02-10 09:48 | P.HPOB ---
History of Present Illness H&P Date: 02/10/21 Chief Complaint: repeat C/S with TL 30 year old presents at 37 weeks for repeat low transverse with TL. PT has gestational hypertension and requires delivery at 37 weeks per ACOG guidelines. Review of Systems All systems: negative Constitutional: Denies chills, Denies fever Eyes: denies blurred vision, denies pain Ears, nose, mouth and throat: Denies headache, Denies sore throat Cardiovascular: Denies chest pain, Denies shortness of breath Respiratory: Denies cough Gastrointestinal: Denies abdominal pain, Denies diarrhea, Denies nausea, Denies vomiting Genitourinary: Denies dysuria, Denies hematuria Musculoskeletal: Denies myalgias Integumentary: Denies pruritus, Denies rash Neurological: Denies numbness, Denies weakness Psychiatric: Denies anxiety, Denies depression Endocrine: Denies fatigue, Denies weight change Past Medical History Past Medical History: Hypertension Additional Past Medical History / Comment(s): "Blood pressure has been high just recently." Obstetric history: Her first was elective . second was a primary for failure to progress and heart tones. Third was repeat c/s. She's had care with me since the first trimeseter. Her type is O+, antibodies negative, rubella immune, RPR nonreactive, HIV nonreactive, hepatitis B negative. Normal 1 hour glucose tolerance test. History of Any Multi-Drug Resistant Organisms: None Reported Past Surgical History: Section, Orthopedic Surgery, Tonsillectomy Additional Past Surgical History / Comment(s): Right knee surgery, Section X2. Past Anesthesia/Blood Transfusion Reactions: No Reported Reaction Smoking Status: Former smoker - Past Family History Mother Family Medical History: Cancer Medications and Allergies Home Medications Medication Instructions Recorded Confirmed Type Pnv No.95/Ferrous Fum/Folic AC 1 tab PO ONCE 09/18/18 02/09/21 History [ Multivitamin Tablet] Phenylephrine HCl [Sudafed PE] 1 tab PO Q4H 02/06/21 02/09/21 History Allergies Allergy/AdvReac Type Severity Reaction Status Date / Time No Known Allergies Allergy Verified 02/09/21 10:15 Exam Osteopathic Statement: *. No significant issues noted on an osteopathic structural exam other than those noted in the History and Physical/Consult. HEart: RRR Lungs: CTAB Abdomen: soft, nontender Extremeties: neg bobby's Assessment and Plan (1) Gestational hypertension Status: Acute Code(s): O13.9 - GESTATIONAL HTN W/O SIGNIFICANT PROTEINURIA, UNSP TRIMESTER SNOMED Code(s): 49917924 (2) Previous section Status: Resolved Code(s): Z98.891 - HISTORY OF UTERINE SCAR FROM PREVIOUS SURGERY SNOMED Code(s): 048529509 (3) Family planning Status: Acute Code(s): Z30.09 - ENCOUNTER FOR OTH GENERAL CNSL AND ADVICE ON CONTRACEPTION SNOMED Code(s): 336803956 Plan: 1. repeat low transverse with TL.
[2021-02-10] MEDS ORDERED: CITRIC ACID-SODIUM CITRATE 15 ML CUP PO ONE (10:18)
[2021-02-10] MEDS: LACTATED RINGERS 1,000 ML IV SCH ×2 (10:45→16:08)
[2021-02-10 11:32] LABS: Creatinine,Urine Random 66.1 mg/dL
[2021-02-10 11:57] LABS: Uric Acid 4.1 mg/dL (3.7-7.4)
[2021-02-10] MEDS ORDERED: OXYTOCIN 30 UNITS/500 ML NS BAG IV ONE (12:25)
[2021-02-10] MEDS ORDERED: KETOROLAC 15 MG/ML 1 ML VIAL ONE (12:25)
[2021-02-10] MEDS ORDERED: ONDANSETRON 4 MG/2 ML VIAL ONE (12:25)
[2021-02-10] MEDS ORDERED: NALBUPHINE 10 MG/ML (1 ML AMP) ONE (12:25)
[2021-02-10] MEDS ORDERED: MORPHINE SULFATE (PF) 0.3 MG/0.3 ML SYR ONE (12:25)
[2021-02-10] MEDS ORDERED: ePHEDrine SULFATE/0.9% NACL/PF 50 MG/5 ML SYRINGE IV ONE (12:25)
[2021-02-10] MEDS ORDERED: SIMETHICONE 80 MG CHEWABLE PO PRN (13:13)
[2021-02-10] MEDS ORDERED: diphenhydrAMINE 25 MG CAP PO PRN (13:13)
[2021-02-10] MEDS ORDERED: NALOXONE 0.4 MG/ML 1 ML VIAL IV PRN (13:13)
[2021-02-10] MEDS ORDERED: METOCLOPRAMIDE 5 MG/ML 2 ML VIAL IVP PRN (13:13)
[2021-02-10] MEDS ORDERED: ONDANSETRON 4 MG/2 ML VIAL IVP PRN (13:13)
[2021-02-10] MEDS ORDERED: diphenhydrAMINE 50 MG CAP PO PRN (13:13)
[2021-02-10] MEDS ORDERED: LANOLIN CREAM 5 GM TUBE TOPICAL PRN (13:13)
[2021-02-10] MEDS ORDERED: diphenhydrAMINE 50 MG/ML 1 ML VIAL IVP PRN ×2 (13:13)
[2021-02-10] MEDS ORDERED: ZOLPIDEM 5 MG TAB PO PRN (13:13)
[2021-02-10] MEDS ORDERED: OXYTOCIN 30 UNITS/500 ML NS 30 UNIT in SALINE 1 500ML.BAG IV SCH (13:15)
--- NOTE | 2021-02-10 13:19 | P.OP ---
Date of Procedure: 02/10/21 Preoperative Diagnosis: 1. at 37 weeks 1 day 2. previous 3. family planning 4. gestational hypertension Postoperative Diagnosis: 1. at 37 weeks 1 day 2. previous 3. family planning 4. gestational hypertension Procedure(s) Performed: Repeat low transverse with tubal ligation Anesthesia: spinal Surgeon: Zully Gomez Filter Bed Placer #1: Jesse Hu Estimated Blood Loss (ml): 550 IV fluids (ml): 200 Urine output (ml): 900 Pathology: other (Placenta, bilateral fallopian tubal segments) Condition: stable Disposition: floor Operative Findings: Viable male, Apgars 8, 8, weight 6 lbs. 13 oz. Normal uterus, tubes, ovaries. Description of Procedure: Patient was taken to the operating room where spinal anesthesia was found be adequate. She was prepped and draped in normal sterile fashion in dorsal supine position with a leftward tilt. Pfannenstiel skin incision was made the scalpel and carried through to the underlying layer of fascia with the scalpel. Fascia was incised in midline and carried bilaterally with the Lazo scissors. The superior aspect of the fascial incision was grasped with Charles clamps elevated and the underlying rectus muscles dissected off with the Lazo's. Attention was then turned to inferior aspect of same incision which in a similar fashion was grasped tented up and the underlying rectus muscles dissected off with the Lazo's. The rectus muscles were the midline and the peritoneum was identified tented up and entered sharply with the scalpel. The incision was extended superiorly and inferiorly with good visualization of the bladder. The bladder blade was inserted and the vesicouterine peritoneum was incised the Metzenbaums then carried bilaterally and bladder flap created digitally. A low transverse incision was then made on the uterus with the scalpel. This was carried bilaterally and digital manner. Infant's head delivered atraumatically, nose and mouth bulb suctioned, cord clamped and cut, infant handed off to waiting nurses. Apgars 8,8, weight 6 lbs. 13 oz. Placenta delivered manually, intact with three-vessel cord. The uterus is exteriorized and cleared of all clots and debris. The uterine incision was closed with 0 Vicryl in a running locked fashion. Second layer of the same sutures used in imbricating fashion to obtain excellent hemostasis. Both ovaries and tubes appeared normal. The right fallopian tube was grasped with hemostat a window was made in the mesosalpinx with the Bovie. The right fallopian tube was doubly ligated and a section was removed, the pedicles were cauterized with the Bovie. The left fallopian tube was grasped with a hemostat and a window was made in the mesosalpinx with the Bovie. The left fallopian tube was doubly ligated and a section was removed, the pedicles were cauterized with the Bovie. The uterus was placed back into the abdomen. The peritoneum was reapproximated using 2-0 Vicryl in a running fashion. The muscles were reapproximated using 2-0 Vicryl in interrupted fashion. The fascia was reapproximated using 0 Vicryl in a running fashion. The subcutaneous tissues closed with 3-0 Vicryl running fashion. The skin was closed renuka. Patient tolerated the procedure well, sponge and instrument counts were correct times 2 and she was taken to the recovery room in stable condition.
[2021-02-10] MEDS: ACETAMINOPHEN TAB 500 MG TAB PO SCH ×2 (16:06→23:35)
[2021-02-10 16:20] LABS: Basophils % (A) 0 %; Eosinophils # (A) 0.1 k/uL (0-0.7); Eosinophils % (A) 1 %; HCT 32.9 % (34.0-46.0); HGB 11.2 gm/dL (11.4-16.0); Lymphocytes # (A) 1.8 k/uL (1.0-4.8); Lymphocytes % (A) 16 %; MCH 34.3 pg (25.0-35.0); MCV 100.6 fL (80.0-100.0); Macrocytosis Slight; Mean Platelet Volume 10.6; Monocytes # (A) 0.4 k/uL (0-1.0); Monocytes % (A) 3 %; Neutrophils % (A) 79 %; Platelet Count 171 k/uL (150-450); RBC 3.27 m/uL (3.80-5.40); RDW 14.5 % (11.5-15.5); WBC 11.3 k/uL (3.8-10.6)
[2021-02-10 16:27] LABS: INR 0.9 (<1.2); Partial Thromboplastin Time 25.6 sec (22.0-30.0); Prothrombin Time 9.6 sec (9.0-12.0)
[2021-02-10] MEDS: IBUPROFEN 600 MG TAB PO SCH (20:24)
[2021-02-10] MEDS: SENNOSIDES-DOCUSATE SODIUM 1 EACH TAB PO SCH (20:35)
[2021-02-10] MEDS: KETOROLAC 15 MG/ML 1 ML VIAL IVP SCH (20:36)
[2021-02-11] MEDS: KETOROLAC 15 MG/ML 1 ML VIAL IVP SCH ×3 (00:48→08:54)
[2021-02-11] MEDS: IBUPROFEN 600 MG TAB PO SCH ×4 (03:19→21:19)
[2021-02-11] MEDS: ACETAMINOPHEN TAB 500 MG TAB PO SCH ×3 (06:10→18:09)
--- NOTE | 2021-02-11 07:03 | P.PNOBGPC ---
Subjective - Subjective Principal diagnosis: Postop day 1 Interval history: Patient is doing very well this morning. She is ambulating and voiding and she is tolerating a diet. Vital signs are stable and afebrile. She did have a couple of elevated blood pressures yesterday but they have stabilized at this time. We'll continue close monitoring. On physical exam her heart is regular and lungs are clear. Abdomen soft incisions intact. Extremities are without pain. Assessment postop day 1. Plan continue current care. Patient reports: Reports appetite normal, Reports voiding normally, Reports pain well controlled, Reports ambulating normally : in NICU Objective - Vital Signs Latest vital signs: Vital Signs Temp Pulse Resp BP Pulse Ox 02/11/21 03:30 97.7 F 79 18 110/74 99 02/10/21 23:45 99.0 F 82 16 122/80 99 02/10/21 21:00 97.7 F 79 16 138/94 100 02/10/21 15:58 96.9 F L 81 18 131/77 98 02/10/21 15:15 79 130/74 02/10/21 14:45 96.6 F L 79 18 129/75 99 02/10/21 14:15 96.2 F L 78 18 128/73 98 02/10/21 14:00 88 125/67 02/10/21 13:45 96.6 F L 86 18 136/71 97 02/10/21 13:30 96.5 F L 83 18 128/66 99 02/10/21 13:15 97.0 F L 83 18 123/63 98 02/10/21 10:18 97.4 F L 85 18 159/102 98 Intake and Output 02/10/21 02/11/21 02/11/21 22:59 06:59 14:59 Output Total 1075 400 Balance -1075 -400 Output: Urine 1075 400 Uretheral ([place]) 150 Other: # Voids 0 - Exam Lungs: bilateral: normal Chest: Normal S1, Normal S2 Extremities: Present: normal Abdomen: Present: normal appearance, soft. Absent: distention, tenderness Incision: Present: normal, dry, intact Uterus: Present: normal, firm - Labs Labs: Abnormal Lab Results - Last 24 Hours (Table) 02/10/21 Range/Units 16:00 WBC 11.3 H (3.8-10.6) k/uL RBC 3.27 L (3.80-5.40) m/uL Hgb 11.2 L (11.4-16.0) gm/dL Hct 32.9 L (34.0-46.0) % MCV 100.6 H (80.0-100.0) fL Neutrophils # 9.0 H (1.3-7.7) k/uL
[2021-02-11 07:22] LABS: Basophils % (A) 0 %; Eosinophils # (A) 0.1 k/uL (0-0.7); Eosinophils % (A) 1 %; HCT 27.3 % (34.0-46.0); Lymphocytes # (A) 1.8 k/uL (1.0-4.8); Lymphocytes % (A) 21 %; MCH 34.1 pg (25.0-35.0); MCHC 33.4 g/dL (31.0-37.0); MCV 102.1 fL (80.0-100.0); Macrocytosis Slight; Mean Platelet Volume 10.7; Monocytes # (A) 0.4 k/uL (0-1.0); Monocytes % (A) 5 %; Neutrophils # (A) 5.9 k/uL (1.3-7.7); Neutrophils % (A) 71 %; Platelet Count 147 k/uL (150-450); RBC 2.68 m/uL (3.80-5.40); RDW 14.3 % (11.5-15.5); WBC 8.3 k/uL (3.8-10.6)
[2021-02-11 07:26] LABS: HGB 9.1 gm/dL (11.4-16.0)
[2021-02-11] MEDS: SENNOSIDES-DOCUSATE SODIUM 1 EACH TAB PO SCH ×2 (08:55→21:19)
--- NOTE | 2021-02-11 09:06 | P.PN ---
Progress Note - Text Progress Note Date: 02/11/21 (802) Anesthesia Postop day 1 Subjective: Status Post section with Duramorph. Patient seen and examined. Doing well without complaint. VAS 1 out of 10. No nausea or vomiting. Mild pruritus tolerable.. Afebrile. Gross lower extremity strength intact. Spinal site intact without induration. Without apparent anesthetic complications. Objective: Vital signs reviewed Heart: Regular Rate Lungs: Good chest excursion Abdomen: Appears nondistended Assessment: Status post with Duramorph postop day 1 Plan: Continue current care with your medical management. Anticipated and the Duramorph around 1700 tonight, you may see increased pain needs around this time.
[2021-02-12] MEDS: ACETAMINOPHEN TAB 500 MG TAB PO SCH ×4 (01:10→16:00)
[2021-02-12] MEDS: IBUPROFEN 600 MG TAB PO SCH ×5 (04:25→22:52)
[2021-02-12] MEDS: SENNOSIDES-DOCUSATE SODIUM 1 EACH TAB PO SCH (07:59)
--- NOTE | 2021-02-12 11:18 | P.PNOBGPC ---
Subjective - Subjective Principal diagnosis: Postop day 2 Interval history: Overall patient is doing well. She is ambulating, voiding and tolerating a diet. She voices no complaints. Vital signs have been stable with continued elevations of blood pressure in the 130s over 90s 150s over 90s. She is not symptomatic and thus far has remained below what threshold for initiating therapy. We'll continue to monitor very closely with continued blood pressure checks, but at this time we will not plan to start therapy unless she becomes symptomatic or her blood pressures on a continuous basis remained elevated. She is feeling well but baby is in special care nursery so we will hold discharge this time. Objective - Vital Signs Latest vital signs: Vital Signs Temp Pulse Resp BP Pulse Ox 02/12/21 07:56 97.8 F 102 H 18 154/93 100 02/12/21 00:00 98.0 F 80 16 130/84 02/11/21 19:57 97.8 F 96 16 152/95 99 02/11/21 15:42 98.7 F 90 18 131/80 99 02/11/21 12:00 98.6 F 88 18 122/76 99 Intake and Output 02/11/21 02/12/21 02/12/21 22:59 06:59 14:59 Other: # Voids 1 2 1 - Exam Lungs: bilateral: normal Chest: Normal S1, Normal S2 Extremities: Present: normal Abdomen: Present: normal appearance, soft. Absent: distention, tenderness Incision: Present: normal, dry, intact Uterus: Present: normal, firm
[2021-02-13] MEDS: SENNOSIDES-DOCUSATE SODIUM 1 EACH TAB PO SCH ×2 (02:34→09:15)
[2021-02-13] MEDS: ACETAMINOPHEN TAB 500 MG TAB PO SCH ×3 (03:26→12:55)
--- NOTE | 2021-02-13 07:31 | P.PNOBGPC ---
Subjective - Subjective Principal diagnosis: S/P RLTCS with TL Interval history: Patient seen and examined. Denies nausea, vomiting, chest pain, shortness of breath or any calf pain. Patient reports: Reports appetite normal, Reports voiding normally, Reports pain well controlled, Reports ambulating normally Objective - Vital Signs Latest vital signs: Vital Signs Temp Pulse Resp BP Pulse Ox 02/13/21 01:00 98.1 F 96 16 143/83 02/12/21 17:47 97 144/81 02/12/21 16:00 98.3 F 98 18 150/95 99 02/12/21 07:56 97.8 F 102 H 18 154/93 100 Intake and Output 02/12/21 02/13/21 02/13/21 22:59 06:59 14:59 Other: # Voids 1 2 - Exam Lungs: bilateral: normal Chest: Normal S1, Normal S2 Extremities: Present: normal Abdomen: Present: normal appearance, soft. Absent: distention, tenderness Incision: Present: normal, dry, intact Uterus: Present: normal, firm Assessment and Plan (1) Gestational hypertension Current Visit: No Status: Acute Code(s): O13.9 - GESTATIONAL HTN W/O SIGNIFICANT PROTEINURIA, UNSP TRIMESTER SNOMED Code(s): 84137181 (2) Family planning Current Visit: No Status: Resolved Code(s): Z30.09 - ENCOUNTER FOR OTH GENERAL CNSL AND ADVICE ON CONTRACEPTION SNOMED Code(s): 028911774 (3) Status post repeat low transverse section Current Visit: No Status: Acute Code(s): Z98.891 - HISTORY OF UTERINE SCAR FROM PREVIOUS SURGERY SNOMED Code(s): 283728134 Plan: 1. Continue care 2. Monitor blood pressures closely
[2021-02-13] MEDS: IBUPROFEN 600 MG TAB PO SCH (09:15)
[2021-02-13 09:54] VITALS: BP 158/96; PULSE 79; RESP 18; TEMP 98.3
== END 2021-02-13 15:00 | disposition home or self-care (01) | DRG 785 ==
LOC: 4FBP 09:56
PROVIDERS: ADMIT Obstetrics & Gynecology; ATTEND Obstetrics & Gynecology
PROC: 0UB70ZZ Excision of Bilateral Fallopian Tubes, Open Approach (ICD-10-PCS; 2021-02-10)
PROC: 10D00Z1 Extraction of Products of Conception, Low, Open Approach (ICD-10-PCS; principal; 2021-02-10 12:00)
DX: O34.211 Maternal care for low transverse scar from previous cesarean delivery (principal); Z37.0 Single live birth; Z3A.37 37 weeks gestation of pregnancy; O13.4 Gestational [pregnancy-induced] hypertension without significant proteinuria, complicating childbirth; Z30.2 Encounter for sterilization; Z87.891 Personal history of nicotine dependence; O12.14 Gestational proteinuria, complicating childbirth; L29.9 Pruritus, unspecified; O75.89 Other specified complications of labor and delivery
CPT/HCPCS: 82570; 83615; 84156; 84450; 84460; 84550; 85025; 85610; 85730; 86850; 86900; 86901; 88302; 88307